=== PATIENT | male | born 1970 | race Caucasian/White ===

== ENCOUNTER 2021-11-29 11:16 | Outpatient (RCR) | payer OTHER, SELFPAY ==
[2021-11-29 12:36] VITALS: BP 130/80; PULSE 78; RESP 20; TEMP 36.1; O2SAT 99
[2021-11-29] MEDS: ACETAMINOPHEN 325 MG TABLET 650 MG PO (12:38)
[2021-11-29] MEDS: FAMOTIDINE 20 MG TABLET PO (12:39)
[2021-11-29] MEDS: diphenhydrAMINE HCl CAP 25 MG CAPSULE PO (12:39)
[2021-11-29 14:04] VITALS: BP 124/72; PULSE 60; O2SAT 98
== END 2021-11-29 16:10 ==
LOC: AMCINF 11:16
PROVIDERS: PCP Nurse Practitioner Adult Health; Visit Provider Internal Medicine Hematology & Oncology
DX: U07.1 COVID-19 (principal); I10 Essential (primary) hypertension; J44.9 Chronic obstructive pulmonary disease, unspecified
CPT/HCPCS: A9270; M0247; Q0247

== ENCOUNTER 2021-12-02 02:32 | Emergency (ER) | payer OTHER, SELFPAY ==
--- NOTE | ~2021-12-02 | CT_ITS ---
EXAMINATION: CT abdomen pelvis wo con DATE: 12/02/2021 03:25 INDICATION: Low abdominal pain. Left flank pain. Hematuria. TECHNIQUE: Computed tomography (CT) of the abdomen and pelvis was performed without intravenous contr ast. Automated exposure control and iterative reconstruction technique were employed. The dose-length product was 441.34 mGy-cm. COMPARISON: CT abdomen and pelvis 03/17/2009 FINDINGS: The visualized portions of the lung bases are clear without pneumonia or pleural effusion. The heart size is normal. No pericardial effusion. There is a small sliding hiatal hernia. The liver, gallbladder, spleen, pancreas, adrenal glands, and kidneys are normal. There is mild left hydrourete r with surrounding fat stranding. There is a 3 mm stone at left ureterovesicular junction. There are no dilated loops of bowel. The appendix is not visualized. There are no pathologically enlarged lymph nodes. There is no free intraperitoneal fluid. There is mild thoracolumbar spondylosis. IMPRESSION: 1. 3 mm stone at left ureterovesicular junction with mild left hydroureter. Reviewed, dictated and finalized at location B. [facility]
[2021-12-02 02:45] VITALS: BP 159/98; PULSE 62; RESP 16; TEMP 36.8; O2SAT 100
[2021-12-02 03:07] LABS: Basophils Percent Auto 0.3 % (0.2-1.2); Eosinophils Absolute Auto 0.2 K/mm3 (0-0.3); Hematocrit 47.1 % (42.0-52.0); Hemoglobin 16.7 g/dL (14.0-18.0); Immature Granulocyte Absolute 0.02 K/mm3 (0.00-0.031); Immature Granulocyte Percent A 0.2 % (0-0.5); Lymphocytes Absolute Auto 1.87 K/mm3 (0.9-3.2); Lymphocytes Percent Auto 19.1 % (18.3-44.2); Mean Corpuscular HGB Conc 35.5 g/dl (32-36); Mean Corpuscular Hemoglobin 30.7 pg (26-34); Mean Corpuscular Volume 86.6 fl (80-100); Monocytes Absolute Auto 0.4 K/mm3 (0.1-0.6); Monocytes Percent Auto 4.2 % (2.6-8.5); Neutrophils Absolute Auto 7.3 K/mm3 (1.3-6.7); Neutrophils Percent Auto 74.2 % (45.5-73.1); Platelet Count Result 190 k/mm3 (150-375); Red Blood Count 5.44 M/mm3 (4.6-6.20); Red Cell Distribution Width 12.5 % (11.5-14.5); White Blood Count 9.8 K/mm3 (4.5-10.0)
[2021-12-02] MEDS: SODIUM CHLORIDE 0.9% IV 1,000 ML 999 ML IV CONT (03:08)
[2021-12-02] MEDS: MORPHINE SULFATE (*CRX) 4 MG/ML INJ IV PUSH (03:08)
[2021-12-02] MEDS: ONDANSETRON INJ 4 MG/2 ML VIAL IV PUSH (03:09)
--- NOTE | 2021-12-02 03:39 | ED.GENADULT ---
HPI - General Adult General Chief complaint: Abdominal Pain Stated complaint: ABD pain, N/V/D, hematuria Time Seen by Provider: 12/02/21 02:47 History of Present Illness HPI narrative: Patient is a 31-year-old gentleman who presents the emergency department with chief complaint of abdominal pain patient reports it is a sharp-like pain reports is not improved by anything states that a week or so he had some sharp-like pain in his abdomen but that went away and then tonight it came back. Patient reports its not improved by anything Related Data Allergies Allergy/AdvReac Type Severity Reaction Status Date / Time ticagrelor Allergy Severe CHEST Verified 12/02/21 02:54 PAIN, ARM NUMBNESS adhesive AdvReac Unknown RASH WITH Verified 12/02/21 02:54 EXTENDED EXPOSURE Review of Systems Review of Systems: A 10 system review of systems was completed on the patient and is negative except for what is stated in the HPI. Nursing and ancillary documentation was reviewed. Exam Narrative: GENERAL: Well-appearing, well-nourished, and in no acute distress. HEAD: Normocephalic, atraumatic. EYES: PERRLA and EOMI. ENT: Nares clear, no rhinorrhea or epistaxis. Mucous membranes moist. NECK: Supple. CHEST: Clear to auscultation. No respiratory distress. HEART: Regular rate and rhythm. No murmur heard. Normal peripheral pulses. ABDOMEN: Soft, nontender, nondistended, normal active bowel sounds. EXTREMITIES: Normal range of motion. No edema. SKIN: Warm, dry, no rash. NEURO: No focal deficits. Alert and oriented x3. PSYCH: Normal mood and affect. Course Course Emergency Course: CT scan shows a 3 mm calculi at the left UVJ Patient is feeling much better at this time Vital Signs Vital signs: Vital Signs Temperature 36.8 C 12/02/21 02:45 Pulse Rate 62 12/02/21 02:45 Respiratory Rate 16 12/02/21 02:45 Blood Pressure 159/98 H 12/02/21 02:45 Pulse Oximetry 100 12/02/21 02:45 Temperature 36.8 C 12/02/21 02:45 Pulse Rate 65 12/02/21 03:44 Respiratory Rate 15 12/02/21 03:44 Blood Pressure 133/75 12/02/21 03:44 Pulse Oximetry 98 12/02/21 03:44 Medical Decision Making Vital Signs Vital Signs: Vital Signs Temperature 36.8 C 12/02/21 02:45 Pulse Rate 62 12/02/21 02:45 Respiratory Rate 16 12/02/21 02:45 Blood Pressure 159/98 H 12/02/21 02:45 Pulse Oximetry 100 12/02/21 02:45 Temperature 36.8 C 12/02/21 02:45 Pulse Rate 65 12/02/21 03:44 Respiratory Rate 15 12/02/21 03:44 Blood Pressure 133/75 12/02/21 03:44 Pulse Oximetry 98 12/02/21 03:44 Lab Data Result diagrams: 12/02/21 03:02 12/02/21 03:02 Labs: Lab Results 12/02/21 12/02/21 12/02/21 Range/Units 03:02 03:02 03:45 WBC 9.8 (4.5-10.0) K/mm3 RBC 5.44 (4.6-6.20) M/mm3 Hgb 16.7 (14.0-18.0) g/dL Hct 47.1 (42.0-52.0) % MCV 86.6 (80-100) fl MCH 30.7 (26-34) pg MCHC 35.5 (32-36) g/dl RDW 12.5 (11.5-14.5) % Plt Count 190 (150-375) k/mm3 MPV 10.0 (7.4-10.4) fl Immature Gran % (Auto) 0.2 (0-0.5) % Neut % (Auto) 74.2 H (45.5-73.1) % Lymph % (Auto) 19.1 (18.3-44.2) % Rooks % (Auto) 4.2 (2.6-8.5) % Eos % (Auto) 2.0 (0-4.4) % Baso % (Auto) 0.3 (0.2-1.2) % Lymph # (Auto) 1.87 (0.9-3.2) K/mm3 Rooks # (Auto) 0.4 (0.1-0.6) K/mm3 Eos # (Auto) 0.2 (0-0.3) K/mm3 Baso # (Auto) 0.0 (0.0-0.1) K/mm3 Abs Immat Gran (auto) 0.02 (0.00-0.031) K/mm3 Absolute Neuts (auto) 7.3 H (1.3-6.7) K/mm3 Absolute Nucleated RBC 0.0 (0.0-0.012) K/mm3 Nucleated RBC % 0.0 (0.0-0.2) % Sodium 138 (137-145) mmol/L Potassium 3.7 (3.4-5.0) mmol/L Chloride 105 (98-107) mmol/L Carbon Dioxide 20 L (22-30) mmol/L Anion Gap 13 (8-16) mmol/L BUN 16 (9-20) mg/dL Creatinine 0.80 (0.7-1.3) mg/dL Estim Creat Clear Calc 93 ml/min Estimated GFR > 60 (59
[2021-12-02 03:40] LABS: Alanine Aminotransferase 27 U/L (4-50); Albumin Level 4.3 g/dL (3.5-5.1); Alkaline Phosphatase 73 U/L (38-126); Anion Gap 13 mmol/L (8-16); Aspartate Amino Transferase 30 U/L (17-59); Bilirubin,Total 1.2 mg/dL (0.2-1.3); Blood Urea Nitrogen 16 mg/dL (9-20); Calcium 8.6 mg/dL (8.4-10.2); Carbon Dioxide 20 mmol/L (22-30); Chloride 105 mmol/L (98-107); Estimated CRCL calculation 93 ml/min; Estimated Glomerular Filt Rate > 60; Glucose 149 mg/dL (65-110); Lipase 76 U/L (23-300); Potassium 3.7 mmol/L (3.4-5.0); Sodium 138 mmol/L (137-145)
[2021-12-02 03:44] VITALS: BP 133/75; PULSE 65; RESP 15; O2SAT 98
[2021-12-02 03:57] LABS: Add Urine Microscopic? YES; Appearance Urine Cloudy (Clear); Bilirubin Urine 1+ (Negative); Blood Urine 3+ (Negative); Color Urine Amber (Yellow); Glucose Urine UA Negative (Negative); Ketones Urine 1+ mg/dL (Negative); Leukocyte Esterase Ur Negative LEU/UL (Negative); Mucus Urine Heavy /lpf; Nitrate Urine Negative (Negative); Protein Urine 2+ mg/dL (Negative); RBC Urine >75 /hpf (0-2); Squamous Epithelial Cell Urine Occasional /hpf (Few)
[2021-12-02 03:59] LABS: Specific Grav Ur 1.031 (1.001-1.035)
[2021-12-02 04:46] VITALS: BP 106/59; PULSE 78; RESP 16; O2SAT 97
== END 2021-12-02 04:47 | disposition home or self-care (01) ==
PROVIDERS: Emergency Provider Emergency Medicine; PCP Nurse Practitioner Adult Health
DX: N13.2 Hydronephrosis with renal and ureteral calculous obstruction (principal)
CPT/HCPCS: 36415; 74176; 80053; 81001; 83690; 85025; 87086; 96361; 96374; 96375; 99284; J2270; J2405; J7030